=== PATIENT | female | born 1945 | race Caucasian/White ===

== ENCOUNTER 2017-09-28 22:14 | Emergency (ER) | payer MEDICARE, OTHER ==
[~2017-09-28] VITALS: Ht 172.7 cm; Wt 73.1 kg
[~2017-09-28 22:14] MED LIST: ALENDRONATE SOD70 MG PO; ALIGN4 MG PO; ASCORBIC ACID500 M3 PO; ASPIR-LOW81 M1 PO; ASPIR-LOW81 MG PO; CALCIUM 500 MG1 EACH PO; CENTRUM SILVER1 EAC3 PO; CRESTOR; CYANOCOBAL1000 MCG/2 IM; DIOVAN160 MG PO; LEVOTHYROXINE; LEVOTHYROXINE75 MCG PO; MELATONIN1 MG PO; METAMUCIL PACKE1 PKT PO; METOPROLOL; METOPROLOL SUCC25 MG PO; PRESERVISION A1 EAC2 PO; ROSUVASTATIN CAL5 MG PO; SUPER B-50 COM1 EACH PO; VITAMIN D-3 401 EACH PO; VITAMIN D31000 UNI2 PO
[2017-09-28 23:12] LABS: HEMATOCRIT 41.5 % (36.0-46.0); MCHC 33.5 G/DL (30.0-36.0); MCV 95.6 FL (83-99); MEAN PLAT.VOLUME 9.6 uM^3 (9.5-12.4); PLATELET COUNT 208 K/uL (156-360); RBC DIS.WIDTH-CV 12.6 % (11.8-14.6); RBC DIS.WIDTH-SD 44.6 % (39-53); RED BLOOD COUNT 4.34 M/uL (3.80-5.20)
[2017-09-28 23:24] LABS: CHLORIDE 100 mEq/L (99-109); POTASSIUM 3.9 mEq/L (3.7-5.4); SODIUM 135 mEq/L (136-147)
[2017-09-28 23:26] LABS: GLUCOSE 154 mg/dL (70-99)
[2017-09-28 23:28] LABS: ANION GAP 10 MEQ/L (2-14); TOTAL BILIRUBIN 0.6 mg/dL (0.0-1.0)
[2017-09-28 23:30] LABS: ALKALINE PHOSPHATASE 79 IU/L (3-129); GFR ESTIMATE (CALCULATED) > 59 mL/min/
[2017-09-28 23:31] LABS: UREA NITROGEN (BUN) 15 mg/dL (9-23)
[2017-09-29 00:14] LABS: LIPASE 32 U/L (1.0-51.0)
[2017-09-29 01:22] LABS: ADD MIUA? YES; BILIRUBIN NEGATIVE; BLOOD NEGATIVE; COLOR YELLOW ((YELLOW)); GLUCOSE (STRIP) NEGATIVE; KETONES 20; LEUKOCYTES NEGATIVE; NITRITE NEGATIVE; PROTEIN (STRIP) 30; SPECIFIC GRAVITY 1.023 (1.000-1.030); UROBILINOGEN 0.2 MG/DL (0.2-1.0)
[2017-09-29 01:28] LABS: BACTERIA NONE SEEN /HPF; EPITHELIAL CELLS RARE /HPF; MUCUS TRACE /LPF; RED BLOOD CELLS 15-20 /HPF (0-5); UCUL ADDED? NO; WHITE BLOOD CELLS 0-5 /HPF (0-5)
[2017-09-29 01:36] VITALS: BP 164/82
== END 2017-09-29 01:37 | disposition home or self-care (01) ==
LOC: EME 22:14
DX: K52.9 Noninfective gastroenteritis and colitis, unspecified (principal); I10 Essential (primary) hypertension; E03.9 Hypothyroidism, unspecified; E78.5 Hyperlipidemia, unspecified; Z87.442 Personal history of urinary calculi; Z85.828 Personal history of other malignant neoplasm of skin; Z88.0 Allergy status to penicillin; Z88.8 Allergy status to other drugs, medicaments and biological substances
CPT/HCPCS: 74176; 80053; 81003; 83690; 85027; 99281; 99285; J2270; J2405; J7030